=== PATIENT | male | born 1965 | race Caucasian/White ===

== ENCOUNTER 2017-09-21 12:45 | Emergency (ER) | payer OTHER ==
[2017-09-21] MEDS ORDERED: Bacitracin Oint 1 GM U/D Packet TOP ONE (13:02)
--- NOTE | 2017-09-21 13:46 | CR ---
Knee 1V or 2V Lt CLINICAL HISTORY: Foreign body FINDINGS: There is a screw in the region of and likely within the patellar tendon. No acute fracture or dislocation is noted. There are no osseous lesions. Impression: There is a screw below the patella which appears to be within the patellar ligament
--- NOTE | 2017-09-21 13:58 | EDM.PDOC ---
ED HPI GENERAL MEDICAL PROBLEM - General Chief Complaint: Laceration Stated Complaint: SCREW EMBEDDED IN LEFT KNEE Time Seen by Provider: 09/21/17 13:05 Source of Information: Reports: Patient History Limitations: Reports: No Limitations - History of Present Illness INITIAL COMMENTS - FREE TEXT/NARRATIVE: 52-year-old male broke through old boards on his deck falling forward and impaling the head and of a screw into his left knee just distal and medial to the patella. He was able to ambulate with little difficulty but it's starting to have increased pain. There was some bleeding initially, that has stopped. No other injury and is otherwise healthy. Tetanus was updated in 2011. Onset: Sudden Duration: Hour(s): (Within the last few hours) Location: Reports: Lower Extremity, Left Severity: Moderate Associated Symptoms: Reports: No Other Symptoms Left Knee Pain Score (Numeric/FACES): 6 - Related Data Allergies Allergy/AdvReac Type Severity Reaction Status Date / Time No Known Allergies Allergy Verified 09/21/17 13:00 Home Meds: Home Meds Levothyroxine 175 mcg PO ACBRK 09/21/17 [History] Past Medical History Endocrine/Metabolic History: Reports: Hypothyroidism Social & Family History - Tobacco Use Smoking Status *Q: Never Smoker - Caffeine Use Caffeine Use: Reports: Coffee - Recreational Drug Use Recreational Drug Use: No ED ROS GENERAL - Review of Systems Review Of Systems: See Below Constitutional: Denies: Fever, Chills Respiratory: Denies: Shortness of Breath, Cough Cardiovascular: Denies: Chest Pain GI/Abdominal: Denies: Nausea, Vomiting Skin: Reports: Diaphoresis (Became somewhat diaphoretic and lightheaded initially, feels better) Neurological: Reports: Dizziness ED EXAM, SKIN/RASH Exam: See Below Exam Limited By: No Limitations General Appearance: Alert, No Apparent Distress Respiratory/Chest: No Respiratory Distress Extremities: Other (Exam is otherwise limited to the left knee. The patient has 2 cm of the shaft of the screw exiting an entrance wound just distal and medial to the knee. There is no tenderness to palpation of the patella, no significant swelling.) Course - Vital Signs Last Recorded V/S: Last Vital Signs Temp 95.7 F 09/21/17 13:02 Pulse 56 L 09/21/17 13:02 Resp 13 09/21/17 13:02 BP 120/79 09/21/17 13:02 Pulse Ox 98 09/21/17 13:02 - Orders/Labs/Meds Meds: Medications Discontinued Medications Generic Name Dose Route Start Last Admin Trade Name S[place] PRN Reason Stop Dose Admin Bacitracin 1 dose 09/21/17 13:02 09/21/17 13:07 Bacitracin Oint 1 Gm TOP 09/21/17 13:03 1 dose ONETIME ONE Administration Lidocaine HCl 5 ml 09/21/17 13:02 09/21/17 13:07 Xylocaine-Mpf 1% INJECT 09/21/17 13:03 5 ml ONETIME ONE Administration - Re-Assessments/Exams Free Text/Narrative Re-Assessment/Exam: 09/21/17 13:56 The external area was cleansed with saline and sterilized with alcohol, then infiltrated with 1% lidocaine. After the infiltration the patient still had significant discomfort with countertraction so deeper anesthesia was needed. An x-ray was done to confirm that the screw did not penetrate the knee joint. It was then removed with blunt dissection of the head of the screw with a tweezers with countertraction with a needle garibay. It was then flushed with 500 mL of fluid, topical bacitracin was applied and a dressing. Patient was given 875 mg of Augmentin twice a day for 10 days, 10 Vicodin for extra pain control and encouraged to use anti-inflammatories and increase activity as tolerated. A copy of his x-ray was given and he can recheck if he is not improving satisfactorily. Departure - Departure Time of Disposition: 14:03 Disposition: Home, Self-Care 01 Condition: Good Clinical Impression: Laceration of knee, left Qualifiers: Encounter type: initial encounter Qualified Code(s): S81.012A - Laceration without foreign body, left knee, initial encounter - Discharge Information Instructions: Puncture Wound, [id number] Referrals: PCP,None [Primary Care Provider] - Forms: ED Department Discharge Care Plan Goals: Keep wound covered and clean while healing. Take antibiotic twice daily for a minimum of 7 days, up to 10 days if tolerating the medication well. Use anti- inflammatories such as naproxen or ibuprofen for pain and use stronger pain medications if needed as directed. Consider rechecking in 3-4 days if not improving satisfactorily or concerns of infection.
== END 2017-09-21 14:16 | disposition home or self-care (01) ==
LOC: JP.ED 12:45
DX: S81.022A Laceration with foreign body, left knee, initial encounter (principal); E03.9 Hypothyroidism, unspecified; W45.8XXA Other foreign body or object entering through skin, initial encounter; Z79.899 Other long term (current) drug therapy
CPT/HCPCS: 10121; 73560-26-LT; 73560-LT; 99284-25